=== PATIENT | female | born 1980 ===

== ENCOUNTER → 2022-12-13 08:31 | Outpatient (BNVA) | payer BC, SELFPAY | PROVIDERS: PCP Family Medicine; Visit Provider Family Medicine | DX: Z00.00 Encounter for general adult medical examination without abnormal findings (principal) | CPT/HCPCS: 80053; 80061 ==

== ENCOUNTER → 2023-11-24 11:36 | Outpatient (BNVA) | payer BC, SELFPAY | PROVIDERS: PCP Family Medicine; Visit Provider Clinical Nurse Specialist Adult Health | DX: J04.0 Acute laryngitis (principal) | CPT/HCPCS: 87070; 87880 ==

== ENCOUNTER → 2024-02-21 11:39 | Outpatient (BNVA) | payer BC, SELFPAY | PROVIDERS: PCP Family Medicine; Visit Provider Family Medicine | DX: F41.9 Anxiety disorder, unspecified (principal); E11.9 Type 2 diabetes mellitus without complications; Z79.899 Other long term (current) drug therapy | CPT/HCPCS: 84439; 84443 ==

== ENCOUNTER 2024-03-08 15:22 | Outpatient (CLI) | payer BC, SELFPAY ==
--- NOTE | 2024-03-08 15:45 | USR_ITS ---
PROCEDURE INFORMATION: Exam: US Pelvis Complete, Transabdominal and US Duplex Artery or Vein, Ovaries, Limited Exam date and time: 03/08/2024 3:41 PM Age: 43 years old Clinical indication: Pelvic pain LABS AND CLINICAL REPORTS: Last menstrual period start date: Unknown TECHNIQUE: Imaging protocol: Real-time transabdominal pelvic ultrasound with image documentation. Real-time duplex ultrasound scan of the arterial or venous flow of the ovaries with B-mode, color Doppler flow and spectral waveform analysis. Complete Pelvis, Limited Duplex. Duplex exam was performed to evaluate for torsion and other vascular conditions. COMPARISON: No relevant prior studies available. FINDINGS: Uterus: The uterus measures 8.8 x 5.0 x 3.9 cm. Endometrial thickness is 1 cm which is thickened if the patient is postmenopausal. There is a small uterine fibroid measuring about 1.5 x 1.3 x 1.2 cm in the posterior left lateral fundus. Right ovary/adnexa: Right ovary measures 2.7 x 2.1 x 1.4 cm. No mass. Blood flow is identified. Left ovary/adnexa: The left ovary measures 2.1 x 1.4 x 1.2 cm. No mass. Blood flow is identified. Intraperitoneal space: No free fluid. Urinary bladder: Normal. US/US pelvic complete* [id number] IMPRESSION: Small uterine fibroid. Otherwise normal uterus. Normal ovaries with no evidence for ovarian torsion.
== END 2024-03-08 15:23 | disposition home or self-care (01) ==
LOC: RAD 15:22
PROVIDERS: PCP Family Medicine; Visit Provider Family Medicine
DX: R10.2 Pelvic and perineal pain (principal); D25.9 Leiomyoma of uterus, unspecified
CPT/HCPCS: 76856

== ENCOUNTER → 2025-04-21 12:24 | Outpatient (BNVA) | payer BC, SELFPAY | PROVIDERS: PCP Family Medicine; Visit Provider Family Medicine | DX: Z00.00 Encounter for general adult medical examination without abnormal findings (principal); H91.90 Unspecified hearing loss, unspecified ear | CPT/HCPCS: 80053; 80061; 84443; 85025 ==

== ENCOUNTER → 2025-10-28 14:49 | Outpatient (BNVA) | payer BC, SELFPAY | PROVIDERS: PCP Family Medicine; Visit Provider Family Medicine | DX: J06.9 Acute upper respiratory infection, unspecified (principal) | CPT/HCPCS: 87400; 87426 ==